=== PATIENT | male | born 1990 | race Caucasian/White ===

== ENCOUNTER 2017-05-02 22:52 | Emergency (ER) | payer SELFPAY ==
--- NOTE | 2017-05-02 23:15 | EDPHY ---
H & P Stated Complaint: c/o n/v/d x 1 day Time Seen by Provider: 05/02/17 23:14 HPI/ROS: HPI: This is a 26-year-old male who presents with Chief Complaint: c/o n/v/d x 1 day Location: GI Quality: Nausea vomiting diarrhea Duration: Since 10:00 a.m., approximately 12 hr Signs and Symptoms: no fever, + nausea, + vomiting, no hematemesis, no blood in stool, no abdominal bloating, + diarrhea, no back pain, no urinary symptoms, no testicular/groin pain, no indigestion, no chest pain, no shortness of breath Timing: Sudden, multiple episodes Severity: Moderate Context: Patient works as a dump truck operator, reports that around 10:00 a.m. this morning he started to feel nauseous and has had multiple episodes of vomiting and loose stool since that time. No recent antibiotic use. Not sure if he has a food-borne illness. Denies any blood in stool/abdominal pain/fever/ hematemesis. Really has not eaten or drank anything since breakfast. No history of abdominal surgeries. Modifying Factors: None Comment: ROS: see HPI Constitutional: No fever, no chills, no weight loss Eyes: No blurred vision Respiratory: No shortness of breath, no cough Cardiovascular: No chest pain, no palpitations Gastrointestinal: + nausea, + vomiting, + diarrhea, no hematemesis, no blood in stool Genitourinary: No dysuria, no blood in urine Extremities: No myalgias, no edema Neurologic: No weakness, no numbness Skin: No rashes, no petechiae Hematologic: No bruising, no bleeding MEDICAL/SURGICAL/SOCIAL HISTORY: Medical history: Generally healthy. Does not take any regular medications. Surgical history: Denies Social history: Employed. CONSTITUTIONAL: Overweight young adult white male, nontoxic in appearance, awake and alert, no obvious distress HEENT: Atraumatic and normocephalic, PERRL, EOMI. Tympanic membranes clear. Oropharynx clear, no exudate and moist pink mucosa. Airway patent. No lymphadenopathy. No meningismus. Cardiovascular: Normal S1/S2, regular rate, regular rhythm, without murmur rub or gallop. PULMONARY/CHEST: Symmetrical and nontender. Clear to auscultation bilaterally. Good air movement. No accessory muscle usage. ABDOMEN: Soft, nondistended, nontender, no rebound, no guarding, no peritoneal signs, no masses or organomegaly. No CVAT. Hyperactive bowel sounds heard x4. EXTREMITIES: 2/2 pulses, strength 5/5, no deformities, no clubbing, no cyanosis or edema. NEUROLOGICAL: no focal neuro deficits. GCS 15. SKIN: Warm and dry, no erythema. no rash. Good capillary refill. Source: Patient Exam Limitations: No limitations - Medical/Surgical History Hx Asthma: No Hx Chronic Respiratory Disease: No Hx Diabetes: No Hx Cardiac Disease: No Hx Renal Disease: No Hx Cirrhosis: No Hx Alcoholism: No Hx HIV/AIDS: No Hx Splenectomy or Spleen Trauma: No Other PMH: none - Social History Smoking Status: Never smoked Constitutional: Initial Vital Signs Temperature (C) 36.5 C 05/02/17 22:55 Heart Rate 121 H 05/02/17 22:55 Respiratory Rate 16 05/02/17 22:55 Blood Pressure 151/89 H 05/02/17 22:55 O2 Sat (%) 94 05/02/17 22:55 O2 Delivery Mode Room Air Allergies/Adverse Reactions: No Known Allergies Allergy (Unverified 05/02/17 22:58) Home Medications: Medication Instructions Recorded Ondansetron Odt [Zofran Odt 4 mg 4 mg PO Q4 PRN #12 tab 05/03/17 (*)] Medical Decision Making ED Course/Re-evaluation: Labs, IV fluids, IV medications ordered Afebrile. Tachycardia noted upon admission. Likely related to dehydration secondary to pre-renal losses. Given 2 L normal saline and IV promethazine. Abdominal exam benign. Low yield for surgical abdomen. Labs reviewed and show mild leukocytosis no acute kidney injury or electrolyte imbalances. 0100: Reassessed patient. abdomen is soft and benign. Passed p.o. trial. Tachycardia resolved at discharge with IV hydration. Advised supportive care This patient was seen under the supervision of my secondary supervising physician. I evaluated care for this patient independently. Discussed this patient with Dr. Melara who did not see the patient. Differential Diagnosis: Differential diagnosis includes but is not limited to gastroenteritis, viral syndrome, colitis, sepsis. - Data Points Laboratory Results: Laboratory Results 05/02/17 23:25 05/02/17 23:25 05/02/17 05/02/17 23:25 23:25 WBC 14.83 10^3/uL H 10^3/uL (3.80-9.50) RBC 5.96 10^6/uL 10^6/uL (4.40-6.38) Hgb 16.2 g/dL g/dL (13.7-17.5) Hct 47.5 % % (40.0-51.0) MCV 79.7 fL L fL (81.5-99.8) MCH 27.2 pg L pg (27.9-34.1) MCHC 34.1 g/dL g/dL (32.4-36.7) RDW 13.2 % % (11.5-15.2) Plt Count 336 10^3/uL 10^3/uL (150-400) MPV 8.8 fL fL (8.7-11.7) Neut % (Auto) 88.4 % H % (39.3-74.2) Lymph % (Auto) 5.1 % L % (15.0-45.0) [place] % (Auto) 5.5 % % (4.5-13.0) Eos % (Auto) 0.1 % L % (0.6-7.6) Baso % (Auto) 0.5 % % (0.3-1.7) Nucleat RBC Rel Count 0.0 % % (0.0-0.2) Absolute Neuts (auto) 13.11 10^3/uL H 10^3/uL (1.70-6.50) Absolute Lymphs (auto) 0.76 10^3/uL L 10^3/uL (1.00-3.00) Absolute Monos (auto) 0.81 10^3/uL H 10^3/uL (0.30-0.80) Absolute Eos (auto) 0.02 10^3/uL L 10^3/uL (0.03-0.40) Absolute Basos (auto) 0.07 10^3/uL 10^3/uL (0.02-0.10) Absolute Nucleated RBC 0.00 10^3/uL 10^3/uL (0-0.01) Immature Gran % 0.4 % % (0.0-1.1) Immature Gran # 0.06 10^3/uL 10^3/uL (0.00-0.10) Sodium 142 mEq/L mEq/L (135-145) Potassium 4.4 mEq/L mEq/L (3.5-5.2) Chloride 102 mEq/L mEq/L (97-110) Carbon Dioxide 22 mEq/l mEq/l (22-31) Anion Gap 18 mEq/L H mEq/L (8-16) BUN 12 mg/dL mg/dL (7-23) Creatinine 0.9 mg/dL mg/dL (0.7-1.3) Estimated GFR > 60 Glucose 127 mg/dL H mg/dL (70-100) Calcium 10.0 mg/dL mg/dL (8.5-10.4) Total Bilirubin 0.6 mg/dL mg/dL (0.1-1.4) Conjugated Bilirubin 0.3 mg/dL mg/dL (0.0-0.5) Unconjugated Bilirubin 0.3 mg/dL mg/dL (0.0-1.1) AST 38 IU/L IU/L (17-59) ALT 77 IU/L H IU/L (21-72) Alkaline Phosphatase 198 IU/L H IU/L (38-126) Total Protein 7.8 g/dL g/dL (6.3-8.2) Albumin 4.6 g/dL g/dL (3.5-5.0) Lipase 67 IU/L IU/L (23-300) Medications Given: Discontinued Medications Sodium Chloride (Ns) 1,000 mls @ 0 mls/hr IV EDNOW ONE; Wide Open PRN Reason: Protocol Stop: 05/02/17 23:18 Last Admin: 05/02/17 23:31 Dose: 1,000 mls Sodium Chloride (Ns) 1,000 mls @ 0 mls/hr IV EDNOW ONE; Wide Open PRN Reason: Protocol Stop: 05/02/17 23:18 Last Admin: 05/02/17 23:31 Dose: 1,000 mls Ondansetron HCl (Zofran Odt 4 Mg Prepack#2) 1 btl TAKEHOME EDNOW ONE Stop: 05/03/17 00:24 Last Admin: 05/03/17 00:54 Dose: 1 btl Promethazine HCl (Phenergan) 12.5 mg IVP EDNOW ONE Stop: 05/02/17 23:18 Last Admin: 05/02/17 23:31 Dose: 12.5 mg Departure - Departure Disposition: Home, Routine, Self-Care Clinical Impression: Viral gastroenteritis Condition: Good Instructions: Gastroenteritis (ED) Additional Instructions: Consume a minimum of 8-10 glasses of water or electrolyte fluid replacement drinks that include Gatorade, Powerade, Pedialyte. Eat a bland diet for the next 48 hours and then slowly advance as tolerated. Take Zofran 1 tab every 4 hours as needed for nausea, vomiting. Return to the Emergency Room if symptoms do not resolve in the next 48-72 hours , you spike a fever > 102 F, or experience intractable abdominal pain/nausea/ vomiting. Prescriptions: Ondansetron Odt [Zofran Odt 4 mg (*)] 4 mg PO Q4 PRN #12 tab PRN Reason: Nausea/Vomiting, Use 1st
[2017-05-02] MEDS ORDERED: NS 1,000 ML IV ONE ×2 (23:17)
[2017-05-02] MEDS ORDERED: PROMETHAZINE HCL 25 MG/ML INJ IVP ONE (23:17)
[2017-05-02 23:33] LABS: PLATELET COUNT 336 10^3/uL (150-400)
[2017-05-03] MEDS ORDERED: ONDANSETRON 4MG PREPACK#2 BTL TAKEHOME ONE (00:23)
[2017-05-03] MEDS ORDERED: NS 1,000 ML IV ONE (02:04)
[2017-05-03 05:49] VITALS: BP 114/74; PULSE 74; RESP 16; TEMP 97.9; O2SAT 96
== END 2017-05-03 05:49 | disposition home or self-care (01) ==
DX: A08.4 Viral intestinal infection, unspecified (principal); E86.9 Volume depletion, unspecified
CPT/HCPCS: 96374; J2550